=== PATIENT | female | born 1950 | race Caucasian/White ===

== ENCOUNTER 2019-02-23 11:53 | Day surgery (SDC) | payer MEDICARE, OTHER ==
[2019-02-22 17:00] VITALS: BMI 35.6
[2019-02-23] MEDS ORDERED: Sodium Bicarbonate 2.5 MEQ/5 ML VIAL ONE (13:07)
--- NOTE | 2019-02-23 14:16 | ULT ---
Fine-needle aspiration of left parotid lesion 02/23/2019 COMPARISON: None HISTORY: Nonspecific parotid mass for which ultrasound guided fine-needle aspiration was requested FINDINGS: Informed consent obtained prior to the procedure. Preprocedural imaging demonstrates a 1.6 x 1.9 x 1.5 cm hypoechoic lesion within the superficial lobe of the left parotid gland medially. The skin overlying the lesion was prepped and draped in normal sterile fashion and anesthetized with 1% buffered lidocaine. With direct sonographic guidance, fine-needle aspiration was obtained utilizing 25-gauge needle. Spec imen was obtained and given to the pathologist at the bedside. Aspiration yields clear fluid. Approximately 2 cc of clear fluid were obtained and given to the pathologist for assessment. Patient tolerated procedure well. No postprocedural complications. IMPRESSION: Successful ultrasound-guided fine-needle aspiration of left parotid mass yielding approxi mately 2 cc of clear fluid. Pathology is pending.
== END 2019-02-23 14:05 | disposition home or self-care (01) ==
LOC: ULT 11:53
PROVIDERS: ATTEND Specialist
PROC: 0C9J3ZX Drainage of Minor Salivary Gland, Percutaneous Approach, Diagnostic (ICD-10-PCS; principal; 2019-02-23)
DX: K11.8 Other diseases of salivary glands (principal); I10 Essential (primary) hypertension; E11.9 Type 2 diabetes mellitus without complications; E89.0 Postprocedural hypothyroidism; Z79.84 Long term (current) use of oral hypoglycemic drugs; Z79.899 Other long term (current) drug therapy; Z90.49 Acquired absence of other specified parts of digestive tract
CPT/HCPCS: 60100; 76942; 88172; 88173

== ENCOUNTER 2019-03-24 08:32 | Day surgery (SDC) | payer MEDICARE, OTHER ==
[2019-03-23 10:27] VITALS: BMI 35.4
[2019-03-24] MEDS ORDERED: Bacitracin Zinc Ointment 30 gm TUBE ONE (09:49)
[2019-03-24] MEDS ORDERED: Lidocaine 1% w/Epinephrine 1:100K 20 ML VIAL ONE (09:49)
[2019-03-24 09:59] LABS: Hemoglobin 13.6 g/dL (12.0-16.0)
[2019-03-24] MEDS ORDERED: Fentanyl 250 MCG/5 ML VIAL ONE (09:59)
[2019-03-24 10:05] LABS: Anion Gap 14 mmol/L (10-20); BUN (Urea Nitrogen) 17 mg/dL (9.8-20.1); Calc. Creatinine Clearance 82 mL/min (70-130); Calcium 10.1 mg/dL (7.8-10.44); Carbon Dioxide 25 mmol/L (23-31); Chloride 102 mmol/L (98-107); Estimated GFR-MDRD 60; Glucose 197 mg/dL (80-115); Sodium 137 mmol/L (136-145)
[2019-03-24] MEDS ORDERED: Fentanyl 100 MCG/2 ML VIAL ONE (12:44)
[2019-03-24] MEDS ORDERED: Morphine 2 MG/ML SYRINGE ONE (13:42)
--- NOTE | 2019-03-25 06:46 | OP ---
DATE OF PROCEDURE: 03/24/2019 PREOPERATIVE DIAGNOSIS: Left parotid mass. 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 PROCEDURE PERFORMED: Left superficial parotidectomy with facial nerve dissection using facial nerve monitor. DESCRIPTION OF PROCEDURE: After consent was obtained, the patient was identified, brought to the operating room, and placed on the operating table in supine position. General endotracheal anesthesia obtained. The patient was positioned for surgery. The patient was prepped and draped and the facial nerve monitor was placed and appropriate electrodes were placed in appropriate sites and documented to be functioning well. We then proceeded with draping the patient and demarcating the lines of anticipated incision with a marking pen. An incision was made in the neck two fingerbreadths below the mandible and brought up along with the natural skin crease into the preauricular region in the natural skin crease. We then dissected down to the preauricular cartilage and the sternocleidomastoid muscle. Dissection continued in this plane until the trunk of the facial nerve was identified between the pointer cartilage and insertion of the posterior belly of the digastric muscle. The trunk was then dissected with inferior and superior branches delineated and dissected free. We then dissected inferiorly and found the mass to be deep. We then turned our attention to the inferior branch of the facial nerve marginal mandibular and cervical branch. We were able to dissect the tumor free from the facial nerve and the tumor was then excised and sent for histologic evaluation subsequent to that. The patient was then awakened, she was extubated and after the wound was closed in layers, Monocryl was used to close the deep layers and a 6-0 Prolene for the skin. Sterile dressing was applied. The patient was then awakened and taken to recovery room in stable condition prior to discharge home facial nerve intact. Job ID: [id number]
== END 2019-03-24 14:15 | disposition home or self-care (01) ==
LOC: SDC 08:32
PROVIDERS: ATTEND Specialist
PROC: 0CB90ZZ Excision of Left Parotid Gland, Open Approach (ICD-10-PCS; principal; 2019-03-24)
DX: D11.0 Benign neoplasm of parotid gland (principal); I10 Essential (primary) hypertension; E11.9 Type 2 diabetes mellitus without complications; Z79.84 Long term (current) use of oral hypoglycemic drugs; Z79.899 Other long term (current) drug therapy
CPT/HCPCS: 80048; 85014; 85018; 88307; 93005; 93010; J0131; J2270; J3010